=== PATIENT | female | born 1960 | race Hispanic/Latino ===

== ENCOUNTER 2020-01-07 17:03 | Inpatient (IN) | payer OTHER ==
[~2020-01-07] VITALS: Ht 160 cm; Wt 120.2 kg
[~2020-01-07 17:03] MED LIST: CLONAZEPAM1 MG PO; DOCUSATE SODIU100 MG PO; GABAPENTIN600 MG PO; GLUCOSAMINE SU500 M2 PO; IBUPROFEN400 MG PO; LEVEMIR100 UNIT/1 SQ; LEVOTHYROXINE25 MCG PO; LORATADINE10 MG PO; METFORMIN HCL1000 M1 PO; METOCLOPRAMIDE H5 MG PO; NEXIUM40 MG PO; RANITIDINE HCL150 MG PO; TYLENOL # 31 EA PO
[2020-01-07] MEDS ORDERED: SODIUM CHLORIDE 0.9% 1000ML 1,000 ML IV STA (17:25)
[2020-01-07] MEDS ORDERED: DEXAMETHASONE SOD PHOS INJ 4 MG/ML VIAL IV ONE (17:30)
[2020-01-07 17:35] LABS: BASOPHILS % 0.2 % (0.0-1.0); HEMATOCRIT 32.9 % (34.2-44.1); HEMOGLOBIN 10.1 g/dL (12.0-16.0); LYMPHOCYTES % 13.2 % (18.0-39.1); MEAN CORPUSCULAR HEMOGLOBIN 25.5 pg (28-32); MEAN CORPUSCULAR HGB CONC 30.7 g/dL (31-35); MEAN CORPUSCULAR VOLUME 83.1 fL (81-99); MONOCYTES # (AUTO) 0.8 (0.2-0.8); MONOCYTES % 4.9 % (4.4-11.3); NEUTROPHILS # (AUTO) 12.3 (2.1-6.9); NEUTROPHILS % 79.7 % (38.7-80.0); PLATELET COUNT 521 x10e3/uL (140-360); RED BLOOD COUNT 3.96 x10e6/uL (3.6-5.1); RED CELL DISTRIBUTION WIDTH 16.6 % (11.7-14.4)
--- NOTE | 2020-01-07 17:35 | NUR ---
INITIAL 02 SAT WAS 88%--ON ROOM AIR
[2020-01-07] MEDS ORDERED: CEFTRIAXONE SOD 1 GM/NS 50 ML 50 ML IV ONE (17:45)
[2020-01-07 17:46] LABS: PROTHROMBIN TIME 13.8 seconds (11.9-14.5)
[2020-01-07 17:47] LABS: PARTIAL THROMBOPLASTIN TIME 27.5 seconds (23.8-35.5)
[2020-01-07 17:54] LABS: ALANINE AMINOTRANSFERASE 12 IU/L (0-55); ALBUMIN 2.8 g/dL (3.5-5.0); ALBUMIN/GLOBULIN RATIO 0.5 (0.8-2.0); ALKALINE PHOSPHATASE 122 IU/L (40-150); ANION GAP 13.6 mmol/L (8-16); BLOOD UREA NITROGEN 29 mg/dL (7-26); BUN/CREATININE RATIO 27 (6-25); CARBON DIOXIDE 20 mmol/L (22-29); CHLORIDE 107 mmol/L (98-107); CREATINE KINASE 74 IU/L (29-168); CREATININE, SERUM 1.06 mg/dL (0.57-1.11); EST GLOMERULAR FILTRATION RATE 53 ML/MIN (60-); GLUCOSE 105 mg/dL (74-118); POTASSIUM 4.6 mmol/L (3.5-5.1); SODIUM 136 mmol/L (136-145)
[2020-01-07] MEDS ORDERED: AZITHROMYCIN 500MG/NS 250 ML 250 ML IV ONE (18:00)
[2020-01-07 18:02] LABS: B-TYPE NATRIURETIC PEPTIDE2 81.1 pg/mL (0-100)
--- NOTE | 2020-01-07 18:11 | Diagnostic Imaging Report ---
Examination: Single AP view of the chest. COMPARISON: None. INDICATION: Shortness breath DISCUSSION: Lines/tubes: None. Lungs: Multifocal ground glass and airspace consolidations bilaterally. Pleura: No pleural effusion or pneumothorax. Heart and mediastinum: The heart and the mediastinum are unremarkable. Bones and soft tissues: No acute bony abnormalities. IMPRESSION: 1. Bilateral multifocal pneumonia Signed by: Dr. Oscar Lester M.D. on 01/07/2020 6:08 PM
--- NOTE | 2020-01-07 18:59 | Emergency Department Note ---
History of Present Illnes History of Present Illness Chief Complaint: COVID PUI History of Present Illness This is a 59 year old female COUGH, F/C, SHORTNESS OF BREATH THAT STARTED 3 DAYS AGO. TESTED + FOR THE JONES VIRUS. Historian: Patient Arrival Mode: Car Additional Treatment LITHOGRAPHIC PROOFER: N/A Paper Stripper Required: No Onset (how long ago): day(s) (3) Radiation: Reports non-radiation Severity: severe Onset quality: gradual Timing of current episode: constant Progression: worsening Chronicity: new Context: Denies recent illness Relieving factors: none Exacerbating factors: none Associated symptoms: Reports cough, Reports fever/chills, Reports shortness of breath, Reports other (ACHY) Past Medical/Family History Physician Review I have reviewed the patient's past medical and family history. Any updates have been documented here. Past Medical History Recent Fever: No Clinical Suspicion of Infectio: No New/Unexplained Change in Ment: No Past Medical History: Hypertension, Diabetes, Hyperlipedemia Other Medical History: OA High cholesterol DM Neuropathy Past Surgical History: Knee Replacement Other Surgery: LEFT ANKLE Social History Smoking Cessation: Never Smoker Counseling Performed: No Alcohol Use: None Any Illegal Drug Use: No Physically hurt or threatened: No Other Last Tetanus: UNK Any Pre-Existing Lines (PICC,: No Review of Systems Review of Systems Constitutional: Reports as per HPI EENTM: Reports no symptoms Cardiovascular: Reports no symptoms Respiratory: Reports as per HPI Gastrointestinal: Reports no symptoms Genitourinary: Reports no symptoms Musculoskeletal: Reports as per HPI Integumentary: Reports no symptoms Neurological: Reports no symptoms Psychological: Reports no symptoms Endocrine: Reports no symptoms Hematological/Lymphatic: Reports no symptoms Physical Exam Related Data Allergies: Coded Allergies: No Known Allergies (Unverified , 10/19/15) Triage Vital Signs Vital Signs Date Time Temp Pulse Resp B/P (MAP) Pulse Ox O2 Delivery O2 Flow Rate FiO2 01/07/20 17:35 61 18 144/66 97 Nasal Cannula 2.0 01/07/20 18:03 98.9 Vital signs reviewed: Yes (INITIAL O2 SAT INTRIAGE WAS 88% ON RA) Physical Exam CONSTITUTIONAL Constitutional: Present ill appearing HENT HENT: Present normocephalic, Present atraumatic, Present oropharynx clear/moist, Present nose normal HENT L/R: Present left ext ear normal, Present right ext ear normal EYES Eyes: Reports PERRL, Reports conjunctivae normal NECK Neck: Present ROM normal PULMONARY Pulmonary: Present respiratory distress (TACHYPNEIC), Present other (DECR BS'S BIBASILAR) CARDIOVASCULAR Cardiovascular: Present regular rhythm, Present tachycardia GASTROINTESTINAL Abdominal: Present soft, Present nontender, Present bowel sounds normal GENITOURINARY Genitourinary: Present exam deferred SKIN Skin: Present warm, Present dry MUSCULOSKELETAL Musculoskeletal: Present ROM normal NEUROLOGICAL Neurological: Present alert, Present oriented x 3, Present no gross motor or sensory deficits PSYCHOLOGICAL Psychological: Present mood/affect normal, Present judgement normal Results Laboratory Result Diagram: 01/07/20 1716 01/07/20 1716 Laboratory Laboratory Tests Test 01/07/20 18:00 01/07/20 17:16 White Blood Count 15.41 x10e3/uL (4.8-10.8) Red Blood Count 3.96 x10e6/uL (3.6-5.1) Hemoglobin 10.1 g/dL (12.0-16.0) Hematocrit 32.9 % (34.2-44.1) Mean Corpuscular Volume 83.1 fL (81-99) Mean Corpuscular Hemoglobin 25.5 pg (28-32) Mean Corpuscular Hemoglobin Concent 30.7 g/dL (31-35) Red Cell Distribution Width 16.6 % (11.7-14.4) Platelet Count 521 x10e3/uL (140-360) Neutrophils (%) (Auto) 79.7 % (38.7-80.0) Lymphocytes (%) (Auto) 13.2 % (18.0-39.1) Monocytes (%) (Auto) 4.9 % (4.4-11.3) Eosinophils (%) (Auto) 0.0 % (0.0-6.0) Basophils (%) (Auto) 0.2 % (0.0-1.0) Neutrophils # (Auto) 12.3 (2.1-6.9) Lymphocytes # (Auto) 2.0 (1.0-3.2) Monocytes # (Auto) 0.8 (0.2-0.8) Eosinophils # (Auto) 0.0 (0.0-0.4) Basophils # (Auto) 0.0 (0.0-0.1) Absolute Immature Granulocyte (auto 0.31 x10e3/uL (0-0.1) Prothrombin Time 13.8 seconds (11.9-14.5) Prothromb Time International Ratio 1.00 Activated Partial Thromboplast Time 27.5 seconds (23.8-35.5) Sodium Level 136 mmol/L (136-145) Potassium Level 4.6 mmol/L (3.5-5.1) Chloride Level 107 mmol/L (98-107) Carbon Dioxide Level 20 mmol/L (22-29) Anion Gap 13.6 mmol/L (8-16) Blood Urea Nitrogen 29 mg/dL (7-26) Creatinine 1.06 mg/dL (0.57-1.11) Estimat Glomerular Filtration Rate 53 ML/MIN (60-) BUN/Creatinine Ratio 27 (6-25) Glucose Level 105 mg/dL (74-118) Lactic Acid Level 2.1 mmol/L (0.5-2.0) Calcium Level 9.0 mg/dL (8.4-10.2) Total Bilirubin 0.3 mg/dL (0.2-1.2) Aspartate Amino Transf (AST/SGOT) 23 IU/L (5-34) Alanine Aminotransferase (ALT/SGPT) 12 IU/L (0-55) Alkaline Phosphatase 122 IU/L (40-150) Creatine Kinase 74 IU/L (29-168) Creatine Kinase MB 0.70 ng/mL (0-5.0) Troponin I < 0.001 ng/mL (0-0.300) B-Type Natriuretic Peptide 81.1 pg/mL (0-100) Total Protein 8.9 g/dL (6.5-8.1) Albumin 2.8 g/dL (3.5-5.0) Globulin 6.1 g/dL (2.3-3.5) Albumin/Globulin Ratio 0.5 (0.8-2.0) Lab results reviewed: Yes Imaging Imaging results reviewed: Yes Assessment & Plan Medical Decision Making MDM CBC, CHEM, ECG, CARDIACS, BLOOD CX'S, LACTIC, CXR, COVID SWAB- R/O COVID19, PNEUMONIA, STEMI/NSTEMI, SEPSIS Reassessment Reassessment ADMIT DR YEN, SPOKE WITH DR Deric BRENNAN ALSO Assessment & Plan Final Impression: (1) Pneumonia due to COVID-19 virus (2) Hypoxia Depart Disposition: ADMITTED Last Vital Signs Date Time Temp Pulse Resp B/P (MAP) Pulse Ox O2 Delivery O2 Flow Rate FiO2 01/07/20 18:03 98.9 55 24 129/60 98 01/07/20 17:35 Nasal Cannula 2.0 Home Meds Reported Medications Clonazepam (CLONAZEPAM) 1 Mg Tablet, 1 MG PO BID, TAB 12/15/16 Insulin Detemir (LEVEMIR) 100 Unit/1 Ml Vial, 14 UNITS SQ BID 10/19/15 Glucosamine Sulfate 2KCL (GLUCOSAMINE SULFATE) 500 Mg Capsule, 500 MG PO TID 10/19/15 Gabapentin (GABAPENTIN) 600 Mg Tablet, 600 MG PO BID 10/19/15 Loratadine (LORATADINE) 10 Mg Tablet, 10 MG PO DAILY, #30 TAB 10/19/15 Ibuprofen (IBUPROFEN) 400 Mg Tablet, 800 MG PO TID, TAB 10/19/15 Docusate Sodium (DOCUSATE SODIUM) 100 Mg Capsule, 100 MG PO DAILY, CAP 10/19/15 Ranitidine Hcl (RANITIDINE HCL) 150 Mg Tablet, 150 MG PO BID 10/19/15 Acetaminophen/Codeine* (TYLENOL # 3*) 1 Ea Tab, 1 TAB PO BID PRN for PAIN 10/19/15 Levothyroxine Sodium (LEVOTHYROXINE SODIUM) 25 Mcg Tablet, 25 MCG PO DAILY 10/19/15 Metoclopramide Hcl (METOCLOPRAMIDE HCL) 5 Mg Tablet, 5 MG PO BID 10/19/15 Metformin Hcl (METFORMIN HCL ER) 1,000 Mg Tab.er.24, 1000 MG PO BID 10/19/15 Esomeprazole Magnesium (NEXIUM) 40 Mg Capsule.dr, 40 MG PO DAILY PROTONIX THERAPEUTIC SUBSTITUTE FOR NEXIUM PER [facility] 10/19/15 Medications in the ED Sodium Chloride 1,000 ml @ 0 mls/hr Q0M STAT IV ; Start 01/07/20 at 17:25; Stop 01/07/20 at 17:29; Status DC Ceftriaxone Sodium 50 ml @ 100 mls/hr ONCE ONCE IV ; Start 01/07/20 at 17:45; Stop 01/07/20 at 18:14; Status DC Azithromycin 250 ml @ 200 mls/hr NOW ONCE IV ; Start 01/07/20 at 18:00; Stop 01/07/20 at 19:14 Dexamethasone Sodium Phosphate 6 mg NOW ONCE IV ; Start 01/07/20 at 17:30; Stop 01/07/20 at 17:50; Status DC ELEANOR MAC MD Jan 07, 2020 18:59
[2020-01-07] MEDS ORDERED: SODIUM CHLORIDE 0.9% 1000ML 1,000 ML IV SCH (19:00)
[2020-01-07] MEDS ORDERED: ACETAMINOPHEN 325 MG TAB PO PRN (19:45)
[2020-01-07] MEDS ORDERED: DEXTROSE 50% SYRINGE 50 ML IV PRN (20:00)
[2020-01-07] MEDS: INSULIN REGULAR, HUMAN 100 UNIT/1 ML 3ML VIAL SQ SCH (20:26)
[2020-01-07] MEDS: INSULIN GLARGINE 100 UNITS/ML VIAL SQ SCH (20:26)
--- NOTE | 2020-01-07 20:56 | Consultation ---
DATE OF CONSULTATION: Pulmonary Critical Care Consultation CHIEF COMPLAINT: Cough, chest discomfort, and dyspnea. HISTORY OF PRESENT ILLNESS: The patient is a 59-year-old woman. She has a history of asthma, but rarely uses inhaler. She complains of worsening dyspnea and cough for 2-3 days. She also notes some chest discomfort and fevers. She is not complaining of nausea or vomiting. PAST SURGICAL HISTORY: Ankle surgery. PAST MEDICAL HISTORY: 1. Diabetes. 2. Asthma. 3. Anxiety. 4. Gastroesophageal reflux. FAMILY HISTORY: Noncontributory. ALLERGIES: NO KNOWN DRUG ALLERGIES. SOCIAL HISTORY: The patient is an occasional smoker. She is not a drinker. REVIEW OF SYSTEMS: She reports some fevers. There is no headache. She has no neck pain. She does have some chest discomfort. She has some cough. She has no abdominal pain. She has no nausea or vomiting. She has occasional wheezing. She does not complain of any leg swelling. PHYSICAL EXAMINATION: VITAL SIGNS: The patient is afebrile. The blood pressure is 129/60, saturation is 98% on 2 L. The pulse is 55. HEENT: No facial swelling or erythema. CARDIAC: Regular rate and rhythm with normal S1, S2. LUNGS: Auscultation of lungs reveals crackles at the bases. There is no wheezing. ABDOMEN: Soft, nontender. There is no rebound or guarding. EXTREMITIES: No leg edema or calf tenderness. There is no cyanosis or clubbing. SKIN: No rashes. NEUROLOGICAL: No focal abnormalities. LABORATORY DATA: White blood cell count is 15.4 and hemoglobin is 10.1. The platelet count is 521. The BUN to creatinine ratio is 29 to 1.06. Electrolytes are within normal limits. Lactic acid is 2.1. RADIOGRAPHIC DATA: Chest x-ray shows bilateral infiltrates. IMPRESSION: 1. Viral pneumonia and coronavirus disease-19 infection. 2. Diabetes. 3. Hypertension. PLAN: 1. Zithromax and Rocephin. 2. Dexamethasone. 3. Lovenox. 4. Oxygen as needed. 5. Continue to monitor and control blood sugars. MD JHONY Jaffe/ROSS /[id number]
[2020-01-07] MEDS ORDERED: HYDRALAZINE HCL 20 MG/ML VIAL IV PRN (21:15)
[2020-01-07] MEDS ORDERED: POLYETHYLENE GLYCOL 3350 17 GM PACK PO PRN (21:15)
[2020-01-07] MEDS ORDERED: ONDANSETRON HCL INJ 2MG/ML 2ML 2 MG/ML VIAL IV PRN (21:15)
[2020-01-07] MEDS: CLONAZEPAM 1 MG TAB PO SCH (21:28)
[2020-01-07] MEDS: ENOXAPARIN SOD INJ 40 MG/0.4 ML SYR SC SCH (21:28)
[2020-01-07 23:18] LABS: CLARITY,URINE CLEAR (CLEAR); COLOR,URINE YELLOW (YELLOW); KETONES,URINE NEGATIVE (NEGATIVE); LEUKOCYTE ESTERASE ,URINE NEGATIVE (NEGATIVE); NITRITE,URINE NEGATIVE (NEGATIVE); PROTEIN,URINE DIPSTICK 1+ (NEGATIVE); URINE UROBILINOGEN 0.2 mg/dL (0.2 - 1)
[2020-01-07 23:19] LABS: BILIRUBIN,URINE NEGATIVE (NEGATIVE)
[2020-01-07 23:38] LABS: BACTERIA,URINE FEW /HPF; EPITHELIAL CELLS,URINE FEW /LPF; RBC,URINE 0-5 /HPF (0-5)
[2020-01-08 02:03] LABS: BASOPHILS % 0.2 % (0.0-1.0); HEMATOCRIT 30.7 % (34.2-44.1); HEMOGLOBIN 9.5 g/dL (12.0-16.0); LYMPHOCYTES # (AUTO) 1.3 (1.0-3.2); LYMPHOCYTES % 8.4 % (18.0-39.1); MEAN CORPUSCULAR HEMOGLOBIN 25.9 pg (28-32); MEAN CORPUSCULAR HGB CONC 30.9 g/dL (31-35); MEAN CORPUSCULAR VOLUME 83.7 fL (81-99); MONOCYTES # (AUTO) 0.4 (0.2-0.8); MONOCYTES % 2.7 % (4.4-11.3); NEUTROPHILS # (AUTO) 13.1 (2.1-6.9); NEUTROPHILS % 87.4 % (38.7-80.0); PLATELET COUNT 425 x10e3/uL (140-360); RED BLOOD COUNT 3.67 x10e6/uL (3.6-5.1); RED CELL DISTRIBUTION WIDTH 16.5 % (11.7-14.4)
[2020-01-08 02:21] LABS: CHOL/HDL RATIO 6.6 (3.0-3.6); PHOSPHORUS 4.1 MG/DL (2.3-4.7)
[2020-01-08 02:49] LABS: THYROID STIMULATING HORMONE 0.721 uIU/mL (0.350-4.940)
[2020-01-08 03:09] LABS: ALANINE AMINOTRANSFERASE 11 IU/L (0-55); ALBUMIN 2.6 g/dL (3.5-5.0); ALBUMIN/GLOBULIN RATIO 0.5 (0.8-2.0); ALKALINE PHOSPHATASE 114 IU/L (40-150); ANION GAP 12.4 mmol/L (8-16); BLOOD UREA NITROGEN 26 mg/dL (7-26); BUN/CREATININE RATIO 27 (6-25); CALCIUM 8.7 mg/dL (8.4-10.2); CARBON DIOXIDE 22 mmol/L (22-29); CHLORIDE 108 mmol/L (98-107); CREATININE, SERUM 0.95 mg/dL (0.57-1.11); EST GLOMERULAR FILTRATION RATE > 60 ML/MIN (60-); GLUCOSE 201 mg/dL (74-118); POTASSIUM 5.4 mmol/L (3.5-5.1); SODIUM 137 mmol/L (136-145)
[2020-01-08 05:16] LABS: BASOPHILS % 0.1 % (0.0-1.0); HEMOGLOBIN 9.9 g/dL (12.0-16.0); LYMPHOCYTES # (AUTO) 1.4 (1.0-3.2); LYMPHOCYTES % 9.8 % (18.0-39.1); MEAN CORPUSCULAR HEMOGLOBIN 25.8 pg (28-32); MEAN CORPUSCULAR HGB CONC 30.9 g/dL (31-35); MEAN CORPUSCULAR VOLUME 83.3 fL (81-99); MONOCYTES # (AUTO) 0.5 (0.2-0.8); MONOCYTES % 3.4 % (4.4-11.3); NEUTROPHILS # (AUTO) 11.8 (2.1-6.9); NEUTROPHILS % 85.4 % (38.7-80.0); PLATELET COUNT 475 x10e3/uL (140-360); RED BLOOD COUNT 3.84 x10e6/uL (3.6-5.1); RED CELL DISTRIBUTION WIDTH 16.6 % (11.7-14.4)
[2020-01-08 05:33] LABS: ALANINE AMINOTRANSFERASE 12 IU/L (0-55); ALBUMIN 2.7 g/dL (3.5-5.0); ALBUMIN/GLOBULIN RATIO 0.5 (0.8-2.0); ALKALINE PHOSPHATASE 118 IU/L (40-150); BLOOD UREA NITROGEN 25 mg/dL (7-26); BUN/CREATININE RATIO 26 (6-25); CALCIUM 8.7 mg/dL (8.4-10.2); CARBON DIOXIDE 18 mmol/L (22-29); CHLORIDE 109 mmol/L (98-107); CREATININE, SERUM 0.95 mg/dL (0.57-1.11); EST GLOMERULAR FILTRATION RATE > 60 ML/MIN (60-); GLUCOSE 234 mg/dL (74-118); SODIUM 136 mmol/L (136-145)
[2020-01-08] MEDS: DEXAMETHASONE SOD PHOS INJ 4 MG/ML VIAL IV SCH (06:28)
[2020-01-08] MEDS: LEVOTHYROXINE SODIUM 25 MCG TABLET PO SCH (06:28)
--- NOTE | 2020-01-08 07:08 | NUR ---
he patient is a 59-year-old woman. She has a history of asthma, but rarely uses inhaler. She complains of worsening dyspnea and cough for 2-3 days. She also notes some chest discomfort and fevers. She is not complaining of nausea or vomiting. PAST SURGICAL HISTORY: Ankle surgery. PAST MEDICAL HISTORY: 1. Diabetes. 2. Asthma. 3. Anxiety. 4. Gastroesophageal reflux. FAMILY HISTORY: Noncontributory. ALLERGIES: NO KNOWN DRUG ALLERGIES. SOCIAL HISTORY: The patient is an occasional smoker. She is not a drinker. REVIEW OF SYSTEMS: She reports some fevers. There is no headache. She has no neck pain. She does have some chest discomfort. She has some cough. She has no abdominal pain. She has no nausea or vomiting. She has occasional wheezing. She does not complain of any leg swelling. PHYSICAL EXAMINATION: VITAL SIGNS: The patient is afebrile. The blood pressure is 129/60, saturation is 98% on 2 L. The pulse is 55. HEENT: No facial swelling or erythema. CARDIAC: Regular rate and rhythm with normal S1, S2. LUNGS: Auscultation of lungs reveals crackles at the bases. There is no wheezing. ABDOMEN: Soft, nontender. There is no rebound or guarding. EXTREMITIES: No leg edema or calf tenderness. There is no cyanosis or clubbing. SKIN: No rashes. NEUROLOGICAL: No focal abnormalities. LABORATORY DATA: White blood cell count is 15.4 and hemoglobin is 10.1. The platelet count is 521. The BUN to creatinine ratio is 29 to 1.06. Electrolytes are within normal limits. Lactic acid is 2.1. [id number]
[2020-01-08] MEDS: INSULIN REGULAR, HUMAN 100 UNIT/1 ML 3ML VIAL SQ SCH ×4 (08:34→20:26)
[2020-01-08] MEDS: PANTOPRAZOLE SOD 40 MG TABEC PO SCH (08:34)
[2020-01-08] MEDS: CHOLECALCIFEROL 400 UNIT TAB PO SCH (08:35)
[2020-01-08] MEDS: CLONAZEPAM 1 MG TAB PO SCH ×2 (08:35→20:59)
[2020-01-08] MEDS: INSULIN GLARGINE 100 UNITS/ML VIAL SQ SCH ×2 (08:35→20:25)
[2020-01-08] MEDS: ENOXAPARIN SOD INJ 40 MG/0.4 ML SYR SC SCH ×2 (08:35→20:25)
[2020-01-08] MEDS: ASCORBIC ACID 500 MG TAB PO SCH ×2 (08:35→17:35)
[2020-01-08] MEDS: ZINC SULFATE 220 MG CAP PO SCH ×2 (08:35→17:35)
--- NOTE | 2020-01-08 10:26 | Diagnostic Imaging Report ---
EXAMINATION: CHEST SINGLE (PORTABLE) INDICATION: Viral pneumonia COMPARISON: Chest radiograph 01/07/2020 FINDINGS: LINES/TUBES:EKG leads overlie the chest. LUNGS:The lungs are moderately inflated. Increasing bilateral multifocal patchy opacities. PLEURA:No pleural effusion or pneumothorax. MEDIASTINUM:The cardiomediastinal silhouette appears unchanged in size and shape. BONES/SOFT TISSUES:No acute osseous injury. ABDOMEN:No free air under the diaphragm. IMPRESSION: Increasing bilateral multifocal patchy airspace opacities consistent with known viral pneumonia. Signed by: Chalino Lares MD on 01/08/2020 10:23 AM
--- NOTE | 2020-01-08 11:10 | NUR ---
PT TO THE FLOOR AT THIS TIME. PT'S VITALS WNL. PT DENIES NEEDS AT THIS TIME.
[2020-01-08 12:00] VITALS: BP 143/68
[2020-01-08 13:24] VITALS: BP 163/70
[2020-01-08 15:38] VITALS: BP 163/70
--- NOTE | 2020-01-08 16:29 | Progress Note ---
DATE: SUBJECTIVE: The patient still has some dyspnea, although she feels better. She is not having any fevers. She is scheduled to receive convalescent plasma as well as possible remdesivir. PHYSICAL EXAMINATION: VITAL SIGNS: Blood pressure is 163/70, saturation is 92% on 4 L. HEENT: Shows no facial swelling or erythema. CARDIAC: Reveals regular rate and rhythm with normal S1 and S2. LUNGS: Auscultation of lungs reveals crackles at the bases. There is no wheezing. ABDOMEN: Soft and nontender. There is no rebound or guarding. EXTREMITIES: Shows no leg edema or calf tenderness. There is no cyanosis or clubbing. SKIN: Shows no rashes. NEUROLOGICAL: Shows no focal abnormalities. LABORATORY DATA: CBC is significant for a white blood cell count of 13.8, hemoglobin 9.9. The platelet count is 475. BUN to creatinine ratio is normal. The carbon dioxide is 18. Blood sugar is 238. Albumin is 2.7. IMPRESSION: 1. Viral pneumonia and COVID-19 infection. 2. Diabetes. 3. Anemia, unspecified. 4. Hypertension. PLAN: 1. Continue dexamethasone. 2. Continue oxygen. 3. Lovenox. 4. Zithromax and Rocephin. 5. The patient is scheduled to receive convalescent plasma therapy. 6. Possible remdesivir. 7. Monitor and control blood sugars. Tanner Vazquez MD [facility]/JAYDENL /[id number]
[2020-01-08] MEDS: AZITHROMYCIN 500MG/NS 250 ML 250 ML IV SCH (17:34)
[2020-01-08] MEDS: CEFTRIAXONE SOD 1 GM/NS 50 ML 50 ML IV SCH (17:35)
[2020-01-08] MEDS ORDERED: SODIUM CHLORIDE 0.9% 250ML 250 ML ONE (17:36)
--- NOTE | 2020-01-08 17:55 | Consultation ---
DATE OF CONSULTATION: HISTORY OF PRESENT ILLNESS: Ms. Noguera is a 59-year-old female who has been sick for 5 days with shortness of breath. The patient comes in to the emergency room where she is being admitted. PAST MEDICAL HISTORY: Asthma, diabetes mellitus, anxiety, gastroesophageal reflux disease. PAST SURGICAL HISTORY: Ankle surgery. ALLERGIES: NKA. SOCIAL HISTORY: There is no smoking, drug abuse, or alcohol abuse. The patient was admitted. Her COVID-19 came back positive. Her sodium 136, potassium 5.0, creatinine 0.95. The patient is currently on 4 L, when she first came was on 2 L. Chest x-ray was reviewed. PHYSICAL EXAMINATION: GENERAL: Currently alert and oriented. VITAL SIGNS: Stable, afebrile. HEENT: She is not icteric. NECK: Supple. CHEST: Clear. HEART: S1 and S2. ABDOMEN: Soft. IMPRESSION: 1. COVID-19. Concerned about superimposed bacterial pneumonia. 2. Diabetes mellitus. Rocephin 1 g daily for 5 days, azithromycin 500 mg daily for 3 days, Lovenox 0.5 mg/kg q.12 hours, dexamethasone 6 mg daily for 10 days. Discussed with the patient about remdesivir. She was informed that it is still investigational drug, but she did not agree to take it and the patient was given the fact sheet. She can stop any time she want. Discussed with the patient also about convalescent plasma, she agreed to take it. We will start the process and give when available. MD SHANNAN Edwards/ROSS /[id number]
[2020-01-08] MEDS ORDERED: REMDESIVIR 200MG/NS 100ML 200 MG in SODIUM CHLORIDE 0.9% 100 ML 100 ML IV ONE ×2 (18:00→19:30)
[2020-01-08 18:21] VITALS: BP 143/68
--- NOTE | 2020-01-08 19:05 | NUR ---
Received nursing shift report from morning nurse. Pt alert and oriented to name. c/o mild LUA at this time. Call momin within reach.
[2020-01-08 20:00] VITALS: BP 147/68
[2020-01-08] MEDS ORDERED: ACETAMINOPHEN/CODEINE 300MG - 30MG TAB PO PRN (20:30)
[2020-01-08] MEDS: GLUCOSAMINE SULFATE 500 MG PO SCH (21:00)
[2020-01-08] MEDS: IBUPROFEN 400 MG TAB PO SCH (21:10)
--- NOTE | 2020-01-08 21:46 | NUR ---
Mateus Foss spoke with Shawn Le, Blood product will not be available tonight for transfusion.
[2020-01-08 22:51] VITALS: BP 147/68
[2020-01-09] VITALS (7 sets, daily range): BP systolic 112–155; BP diastolic 45–83
--- NOTE | 2020-01-09 03:45 | NUR ---
PT C/O SEVERE 10/10 HEADACHE, CHASITY WEBSTER ORDERED FIORICET PRN.
[2020-01-09] MEDS: ACETAMIN/BUTALBITAL/CAFFEINE TAB PO PRN (03:55)
[2020-01-09] MEDS: LEVOTHYROXINE SODIUM 25 MCG TABLET PO SCH (06:00)
[2020-01-09] MEDS: DEXAMETHASONE SOD PHOS INJ 4 MG/ML VIAL IV SCH (06:00)
--- NOTE | 2020-01-09 07:10 | NUR ---
PATIENT IS IN STABLE CONDITION WITH NO S/S OF RESPIRATORY DISTRESS. NO PAIN VOICED. 02 AT 4LNC AND TELEMETRY APPLIED. CALL LIGHT IS WITHIN REACH, PATIENT INSTRUCTED TO CALL FOR ASSISTANCE NEEDED.
[2020-01-09 07:27] LABS: BASOPHILS % 0.1 % (0.0-1.0); HEMATOCRIT 31.1 % (34.2-44.1); HEMOGLOBIN 9.7 g/dL (12.0-16.0); LYMPHOCYTES # (AUTO) 1.9 (1.0-3.2); LYMPHOCYTES % 14.2 % (18.0-39.1); MEAN CORPUSCULAR HEMOGLOBIN 25.8 pg (28-32); MEAN CORPUSCULAR HGB CONC 31.2 g/dL (31-35); MEAN CORPUSCULAR VOLUME 82.7 fL (81-99); MONOCYTES # (AUTO) 0.9 (0.2-0.8); MONOCYTES % 6.8 % (4.4-11.3); NEUTROPHILS # (AUTO) 10.7 (2.1-6.9); NEUTROPHILS % 78.1 % (38.7-80.0); PLATELET COUNT 479 x10e3/uL (140-360); RED BLOOD COUNT 3.76 x10e6/uL (3.6-5.1); RED CELL DISTRIBUTION WIDTH 16.5 % (11.7-14.4)
[2020-01-09] MEDS: INSULIN REGULAR, HUMAN 100 UNIT/1 ML 3ML VIAL SQ SCH ×4 (07:30→21:00)
[2020-01-09 07:56] LABS: ANION GAP 12.4 mmol/L (8-16); CALCIUM 8.7 mg/dL (8.4-10.2); CREATININE, SERUM 1.02 mg/dL (0.57-1.11); POTASSIUM 4.4 mmol/L (3.5-5.1)
[2020-01-09] MEDS: GABAPENTIN 300 MG CAP PO SCH ×2 (08:51→16:05)
[2020-01-09] MEDS: LORATADINE 10 MG TAB PO SCH (08:51)
[2020-01-09] MEDS: ASCORBIC ACID 500 MG TAB PO SCH ×2 (08:51→16:05)
[2020-01-09] MEDS: CLONAZEPAM 1 MG TAB PO SCH ×2 (08:51→21:00)
[2020-01-09] MEDS: IBUPROFEN 400 MG TAB PO SCH (08:51)
[2020-01-09] MEDS: PANTOPRAZOLE SOD 40 MG TABEC PO SCH (08:51)
[2020-01-09] MEDS: ENOXAPARIN SOD INJ 40 MG/0.4 ML SYR SC SCH ×2 (08:51→21:00)
[2020-01-09] MEDS: ZINC SULFATE 220 MG CAP PO SCH ×2 (08:51→16:05)
[2020-01-09] MEDS: DOCUSATE SODIUM 100 MG CAP PO SCH (08:51)
[2020-01-09] MEDS: CHOLECALCIFEROL 400 UNIT TAB PO SCH (08:51)
[2020-01-09] MEDS: INSULIN GLARGINE 100 UNITS/ML VIAL SQ SCH ×2 (08:52→21:00)
[2020-01-09] MEDS: GLUCOSAMINE SULFATE 500 MG PO SCH ×3 (09:00→21:00)
[2020-01-09] MEDS ORDERED: NON-FORMULARY MEDICATION (Gabapentin 600 MG) PO SCH (09:00)
[2020-01-09] MEDS: AMLODIPINE BESYLATE 5 MG TAB PO SCH (12:33)
[2020-01-09] MEDS: REMDESIVIR 100MG/NS 100ML 100 MG in SODIUM CHLORIDE 0.9% 100 ML 100 ML IV SCH (13:53)
--- NOTE | 2020-01-09 15:25 | Progress Note ---
DATE: SUBJECTIVE: The patient is afebrile. She has less dyspnea. She is down to 4 L. PHYSICAL EXAMINATION: VITAL SIGNS: Blood pressure is 119/83, saturation is 99%. Pulse is 96. HEENT: Shows no facial swelling or erythema. CARDIAC: Reveals regular rate and rhythm with normal S1 and S2. LUNGS: Auscultation of lungs reveals clear breath sounds bilaterally. There is no wheezing. ABDOMEN: Soft and nontender. There is no rebound or guarding. EXTREMITIES: Shows no leg edema or calf tenderness. There is no cyanosis or clubbing. SKIN: Shows no rashes. NEUROLOGICAL: Shows no focal abnormalities. LABORATORY DATA: White blood cell count is 13.7 and hemoglobin is 9.7. The platelet count is 479. The BUN to creatinine ratio is 32 to 1.02. The other electrolytes within normal limits. IMPRESSION: 1. Viral pneumonia and COVID-19 infection. 2. Diabetes. 3. Anemia, unspecified. 4. Hypertension. PLAN: 1. Continue oxygen. 2. Complete remdesivir. 3. Continue Lovenox. 4. Complete dexamethasone. 5. Complete antibiotics. 6. Monitor and control blood sugars. Tanner Vazquez MD [facility]/MODL /[id number]
[2020-01-09] MEDS: AZITHROMYCIN 500MG/NS 250 ML 250 ML IV SCH (16:05)
[2020-01-09] MEDS: CEFTRIAXONE SOD 1 GM/NS 50 ML 50 ML IV SCH (17:45)
[2020-01-09] MEDS ORDERED: SODIUM CHLORIDE 0.9% 250ML 250 ML ONE (18:37)
--- NOTE | 2020-01-09 19:30 | NUR ---
Completed shift report from morning nurse. Pt alert and oriented to name. Pt receiving convalescent frozen plasma 20g right wrist, tolerating well. Call momin within reach. Will continue to monitor.
--- NOTE | 2020-01-09 19:33 | NUR ---
PATIENT IS IN STABLE CONDITION WITH NO S/S OF RESPIRATORY DISTRESS-NO PAIN VOICED. TELEMETRY APPLIED. 02 APPLIED AT 4L NC. CONVALESCENT FROZEN PLASMA INFUSING AT THIS TIME- PATIENT TOLERATING INFUSION WELL. CALL LIGHT IS WITHIN REACH, PATIENT INSTRUCTED TO CALL FOR ASSISTANCE NEEDED. REPORT GIVEN TO ONCOMING NURSE.
--- NOTE | 2020-01-09 19:45 | NUR ---
Convalescent frozen plasma completed, 221 ml in 1 hour. Pt tolerated well, no reactions noted.
[2020-01-09] MEDS: TEMAZEPAM 7.5 MG CAP PO PRN (20:45)
[2020-01-10] VITALS (8 sets, daily range): BP systolic 114–134; BP diastolic 52–58
--- NOTE | 2020-01-10 05:45 | NUR ---
Blood drawn x1 stick, Pt tolerated well. No acute distress noted. O2 @4L NC. Call light within reach.
[2020-01-10] MEDS: DEXAMETHASONE SOD PHOS INJ 4 MG/ML VIAL IV SCH (05:56)
[2020-01-10] MEDS: LEVOTHYROXINE SODIUM 25 MCG TABLET PO SCH (05:56)
[2020-01-10 06:02] LABS: BASOPHILS % 0.2 % (0.0-1.0); EOSINOPHILS % 0.1 % (0.0-6.0); HEMATOCRIT 31.6 % (34.2-44.1); HEMOGLOBIN 9.8 g/dL (12.0-16.0); LYMPHOCYTES # (AUTO) 2.3 (1.0-3.2); MEAN CORPUSCULAR HEMOGLOBIN 25.7 pg (28-32); MEAN CORPUSCULAR VOLUME 82.9 fL (81-99); MONOCYTES # (AUTO) 0.9 (0.2-0.8); MONOCYTES % 6.6 % (4.4-11.3); NEUTROPHILS % 75.3 % (38.7-80.0); PLATELET COUNT 489 x10e3/uL (140-360); RED BLOOD COUNT 3.81 x10e6/uL (3.6-5.1); RED CELL DISTRIBUTION WIDTH 16.7 % (11.7-14.4)
[2020-01-10 06:33] LABS: ALBUMIN 2.7 g/dL (3.5-5.0); ALBUMIN/GLOBULIN RATIO 0.6 (0.8-2.0); ANION GAP 12.1 mmol/L (8-16); CALCIUM 8.7 mg/dL (8.4-10.2); CHOL/HDL RATIO 5.8 (3.0-3.6); CREATININE, SERUM 0.97 mg/dL (0.57-1.11); POTASSIUM 4.1 mmol/L (3.5-5.1)
--- NOTE | 2020-01-10 07:20 | NUR ---
PATIENT IS AWAKE, ALERT, AND IN STABLE CONDITION WITH NO S/S OF RESPIRATORY DISTRESS. NO PAIN VOICED. TELEMETRY APPLIED. 02 APPLIED AT 4L NC. BEDSIDE COMMODE AVAILABLE BY PATIENT'S BEDSIDE. CALL LIGHT IS WITHIN REACH, PATIENT INSTRUCTED TO CALL FOR ASSISTANCE NEEDED.
[2020-01-10] MEDS: INSULIN REGULAR, HUMAN 100 UNIT/1 ML 3ML VIAL SQ SCH ×4 (07:30→20:30)
[2020-01-10] MEDS: ENOXAPARIN SOD INJ 40 MG/0.4 ML SYR SC SCH ×2 (08:16→20:30)
[2020-01-10] MEDS: ASCORBIC ACID 500 MG TAB PO SCH ×2 (08:18→16:53)
[2020-01-10] MEDS: CHOLECALCIFEROL 400 UNIT TAB PO SCH (08:18)
[2020-01-10] MEDS: AMLODIPINE BESYLATE 5 MG TAB PO SCH (08:18)
[2020-01-10] MEDS: DOCUSATE SODIUM 100 MG CAP PO SCH (08:18)
[2020-01-10] MEDS: INSULIN GLARGINE 100 UNITS/ML VIAL SQ SCH ×2 (08:18→20:30)
[2020-01-10] MEDS: GLUCOSAMINE SULFATE 500 MG PO SCH ×3 (08:18→21:00)
[2020-01-10] MEDS: ZINC SULFATE 220 MG CAP PO SCH ×2 (08:18→16:53)
[2020-01-10] MEDS: GABAPENTIN 300 MG CAP PO SCH ×2 (08:18→16:53)
[2020-01-10] MEDS: LORATADINE 10 MG TAB PO SCH (08:18)
[2020-01-10] MEDS: PANTOPRAZOLE SOD 40 MG TABEC PO SCH (08:18)
[2020-01-10] MEDS: CLONAZEPAM 1 MG TAB PO SCH ×2 (08:18→20:30)
[2020-01-10] MEDS ORDERED: NORVASC5 MG PO (10:34)
--- NOTE | 2020-01-10 13:10 | NUR ---
PT screen completed. Patient is able to perform bed mobility and transfers with out assistance, she is able to walk inside the room with walker with Mod I. Skilled physical therapy services not indicated at this time. Please notify therapy/write new PT orders if any changes in functional status noted in future. Thank you. Addendum: 01/10/20 at 1312 by Archie triana PT Amended: Links added.
[2020-01-10] MEDS: REMDESIVIR 100MG/NS 100ML 100 MG in SODIUM CHLORIDE 0.9% 100 ML 100 ML IV SCH (13:26)
[2020-01-10] MEDS: AZITHROMYCIN 500MG/NS 250 ML 250 ML IV SCH (16:02)
[2020-01-10] MEDS: CEFTRIAXONE SOD 1 GM/NS 50 ML 50 ML IV SCH (16:53)
--- NOTE | 2020-01-10 19:17 | NUR ---
PATIENT IS IN STABLE CONDITION WITH NO S/S OF RESPIRATORY DISTRESS-NO PAIN VOICED. TELEMETRY APPLIED. 02 APPLIED AT 2L NC. BEDSIDE COMMODE AVAILABLE NEAR PATIENT'S BEDSIDE. CALL LIGHT IS WITHIN REACH, PATIENT INSTRUCTED TO CALL FOR ASSISTANCE NEEDED. REPORT GIVEN TO ONCOMING NURSE.
--- NOTE | 2020-01-10 19:25 | NUR ---
Patient visited in room during nursing rounds. On droplet isolation for positive covid test. Alert and oriented x3. Ambulatory in room and uses bedside commode prn. Sinus bradycardia (56) on telemetry reading. Pt on IV antibiotic treatment (IV Azithromycin and IV Rocephin) as scheduled. Also on IV anti-viral medication (Remdesivir) as scheduled. O2 saturation 99% on 2L NC. Call momin within reach. Will monitor pt closely.
--- NOTE | 2020-01-10 19:45 | Progress Note ---
DATE: SUBJECTIVE: The patient is receiving the last dose of remdesivir tomorrow. She is down to 2 L. She is less symptomatic. PHYSICAL EXAMINATION: VITAL SIGNS: Blood pressure is 114/54, saturation is 96%. The patient is afebrile. HEENT: Shows no facial swelling or erythema. CARDIAC: Reveals regular rate and rhythm with normal S1, S2. LUNGS: Auscultation of lungs reveals rhonchorous breath sounds bilaterally. There is no wheezing. ABDOMEN: Soft and nontender. There is no rebound or guarding. EXTREMITIES: Shows no leg edema. LABORATORY DATA: White blood cell count is 13.2, hemoglobin is 9.8. BUN, creatinine, electrolytes show within normal limits. Blood sugar is 292. IMPRESSION: 1. Viral pneumonia and COVID-19 infection. 2. Diabetes. 3. Anemia, unspecified. 4. Dehydration. 5. Hypertension. PLAN: 1. Complete remdesivir. 2. Continue Lovenox. 3. Complete dexamethasone. 4. Wean oxygen. 5. Monitor and control blood sugars. 6. Possible discharge home after completion of remdesivir. Tanner Vazquez MD [facility]/MODL /[id number]
[2020-01-11] VITALS (8 sets, daily range): BP systolic 121–137; BP diastolic 56–66
[2020-01-11] MEDS: LEVOTHYROXINE SODIUM 25 MCG TABLET PO SCH (05:20)
[2020-01-11] MEDS: DEXAMETHASONE SOD PHOS INJ 4 MG/ML VIAL IV SCH (05:20)
[2020-01-11 05:48] LABS: BASOPHILS % 0.1 % (0.0-1.0); EOSINOPHILS # (AUTO) 0.1 (0.0-0.4); EOSINOPHILS % 0.6 % (0.0-6.0); HEMATOCRIT 31.4 % (34.2-44.1); HEMOGLOBIN 9.6 g/dL (12.0-16.0); LYMPHOCYTES # (AUTO) 2.7 (1.0-3.2); LYMPHOCYTES % 17.9 % (18.0-39.1); MEAN CORPUSCULAR HEMOGLOBIN 25.7 pg (28-32); MEAN CORPUSCULAR HGB CONC 30.6 g/dL (31-35); MONOCYTES # (AUTO) 0.9 (0.2-0.8); MONOCYTES % 5.8 % (4.4-11.3); NEUTROPHILS # (AUTO) 11.4 (2.1-6.9); NEUTROPHILS % 74.9 % (38.7-80.0); PLATELET COUNT 460 x10e3/uL (140-360); RED BLOOD COUNT 3.74 x10e6/uL (3.6-5.1); RED CELL DISTRIBUTION WIDTH 16.9 % (11.7-14.4)
[2020-01-11 06:34] LABS: ALANINE AMINOTRANSFERASE 13 IU/L (0-55); ALBUMIN 2.6 g/dL (3.5-5.0); ALBUMIN/GLOBULIN RATIO 0.6 (0.8-2.0); ALKALINE PHOSPHATASE 98 IU/L (40-150); ANION GAP 10.9 mmol/L (8-16); BLOOD UREA NITROGEN 38 mg/dL (7-26); BUN/CREATININE RATIO 44 (6-25); CALCIUM 8.3 mg/dL (8.4-10.2); CARBON DIOXIDE 20 mmol/L (22-29); CHLORIDE 108 mmol/L (98-107); CREATININE, SERUM 0.86 mg/dL (0.57-1.11); EST GLOMERULAR FILTRATION RATE > 60 ML/MIN (60-); GLUCOSE 184 mg/dL (74-118); POTASSIUM 3.9 mmol/L (3.5-5.1); SODIUM 135 mmol/L (136-145)
--- NOTE | 2020-01-11 08:29 | Diagnostic Imaging Report ---
Examination: Single AP view of the chest. COMPARISON: 01/08/2020 INDICATION: Bilateral pneumonia DISCUSSION: The lungs remain well-inflated. Interval improvement in multifocal patchy airspace disease relative to 01/08/2020. No pleural effusion or pneumothorax. Stable cardiomediastinal contour. No acute osseous abnormalities. IMPRESSION: Interval improvement in patchy multifocal airspace opacities in keeping with known viral pneumonia. Signed by: Dr. Hernando Rizo M.D. on 01/11/2020 8:25 AM
[2020-01-11] MEDS: GLUCOSAMINE SULFATE 500 MG PO SCH ×3 (09:00→20:21)
[2020-01-11] MEDS: PANTOPRAZOLE SOD 40 MG TABEC PO SCH (09:22)
[2020-01-11] MEDS: ASCORBIC ACID 500 MG TAB PO SCH ×2 (09:23→16:41)
[2020-01-11] MEDS: ENOXAPARIN SOD INJ 40 MG/0.4 ML SYR SC SCH ×2 (09:23→20:45)
[2020-01-11] MEDS: LORATADINE 10 MG TAB PO SCH (09:23)
[2020-01-11] MEDS: CLONAZEPAM 1 MG TAB PO SCH ×2 (09:23→20:45)
[2020-01-11] MEDS: GABAPENTIN 300 MG CAP PO SCH ×2 (09:23→16:41)
[2020-01-11] MEDS: AMLODIPINE BESYLATE 5 MG TAB PO SCH (09:23)
[2020-01-11] MEDS: ZINC SULFATE 220 MG CAP PO SCH ×2 (09:23→16:41)
[2020-01-11] MEDS: DOCUSATE SODIUM 100 MG CAP PO SCH (09:23)
[2020-01-11] MEDS: INSULIN REGULAR, HUMAN 100 UNIT/1 ML 3ML VIAL SQ SCH ×4 (09:23→20:45)
[2020-01-11] MEDS: CHOLECALCIFEROL 400 UNIT TAB PO SCH (09:23)
[2020-01-11] MEDS: INSULIN GLARGINE 100 UNITS/ML VIAL SQ SCH ×2 (09:23→20:45)
[2020-01-11] MEDS: ACETAMIN/BUTALBITAL/CAFFEINE TAB PO PRN (09:24)
--- NOTE | 2020-01-11 09:47 | Progress Note ---
DATE: SUBJECTIVE: The patient seen and evaluated. Available labs and notes reviewed. Discussed with Dr. Silva. REVIEW OF SYSTEMS: The patient is doing fine on 2 L of nasal cannula per minute on a high-flow; however, she gets short of breath when she goes to the bedside commode. She had a saturation test for oxygen done on 01/11/2020 showed 88% oxygen saturation on room air at rest. PHYSICAL EXAMINATION: VITAL SIGNS: Temperature is 97.9, pulse 60, respirations 22, blood pressure is 124/58. GENERAL: Alert and oriented, no acute distress. Seems comfortable on 2 L of nasal cannula via high-flow when she is resting in bed. CV: S1-S2. CHEST: Equal expansion, decreased breath sounds, no acute distress. ABDOMEN: Soft, obese, nontender. The patient has a BMI of 46.2. EXTREMITIES: Weak. LABORATORY STUDIES: White count of 15.26, which is slightly higher than yesterday, which was 13.26, hemoglobin is 9.6, platelets 460. Sodium 135, potassium 3.9, creatinine 0.8. SEROLOGY: Coronavirus was detected on 01/06. MICROBIOLOGY: Blood culture negative, 72 hours. RADIOLOGY STUDIES: Chest x-ray from today showed interval improvement in patchy multifocal airspace opacities in keeping with known viral pneumonia. ASSESSMENT AND PLAN: 1. COVID-19 pneumonia/superimposed bacterial pneumonia. 2. Leukocytosis. 3. Anemia. 4. Obesity. 5. Debility. 6. The patient currently is on 2L nasal cannula with saturation of 93% to 99%. We will continue with Rocephin, Remdesivir, dexamethasone, zinc, vitamin C, and vitamin D, and Lovenox. We started Zithromax. Continue weaning off oxygen. Further management of this patient is based on daily findings on laboratory examination. Remdesivir was started on 01/08/2020. Please refer to chart for further information. Dictated by Jesús Lau PA-C (Al) Kimberly Silva MD /MODL /[id number]
--- NOTE | 2020-01-11 13:44 | Progress Note ---
DATE: SUBJECTIVE: The patient is afebrile. The patient has less dyspnea. She has no chest pain. PHYSICAL EXAMINATION: VITAL SIGNS: Blood pressure is 125/62, saturation is 98% on 3 L. HEENT: No facial swelling or erythema. CARDIAC: Regular rate and rhythm with normal S1, S2. LUNGS: Auscultation of lungs reveals crackles and rhonchi in both bases. There is no wheezing. ABDOMEN: Soft, nontender. There is no rebound or guarding. EXTREMITIES: No leg edema or calf tenderness. There is no cyanosis or clubbing. SKIN: No rashes. NEUROLOGICAL: No focal abnormalities. LABORATORY DATA: White blood cell count is 15.2 and hemoglobin is 9.6. The platelet count is 460. BUN to creatinine ratio is 39 to 0.86. Carbon dioxide is 20 and other electrolytes are within normal limits. IMPRESSION: 1. Acute respiratory failure. 2. Viral pneumonia and coronavirus disease-19 infection. 3. Diabetes. 4. Anemia, unspecified. PLAN: 1. Complete remdesivir. 2. Home O2 evaluation. 3. Complete dexamethasone. 4. The patient will need low-dose Eliquis or high-dose aspirin for one month upon discharge. Tanner Vazquez MD [facility]/MOD[facility] /[id number]
[2020-01-11] MEDS: REMDESIVIR 100MG/NS 100ML 100 MG in SODIUM CHLORIDE 0.9% 100 ML 100 ML IV SCH (14:49)
[2020-01-11] MEDS: CEFTRIAXONE SOD 1 GM/NS 50 ML 50 ML IV SCH (16:41)
--- NOTE | 2020-01-11 16:45 | NUR ---
ORDER WS RECEIVED FOR HOME O2 @ 2L/NC. CALL TO THE PT. PT WAS PROVIDED CHOICE; [facility] AND [facility]. PT CHOSE [facility]. CLINICALS FAXED TO [facility] @ OFF: [phone] / FAX: [phone]. NOTIFIED EKTA GUZMÁN. SPOKE Sharon MARTINEZ / BEDSIDE RN. STATES PT HAD 1 MORE DOSE OF REMDISIVIR AND WOULD DC HOME ON TOMORROW. CM WILL PROVIDE PORTABLE O2 TOMORROW.
--- NOTE | 2020-01-11 19:20 | NUR ---
Patient visited in room during nursing rounds. On droplet isolation for positive covid test. Alert and oriented x3. Ambulatory in room and uses bedside commode prn. Sinus rhythm (68) on telemetry reading. Pt on IV antibiotic treatment (IV Azithromycin and IV Rocephin) as scheduled. Also on IV anti-viral medication (Remdesivir) as scheduled. O2 saturation 95% on 3L NC. Call momin within reach. Will monitor pt closely.
[2020-01-11] MEDS: TEMAZEPAM 7.5 MG CAP PO PRN (20:45)
[2020-01-12] VITALS: BP 113/56
[2020-01-12 04:40] VITALS: BP 136/65
[2020-01-12] MEDS: LEVOTHYROXINE SODIUM 25 MCG TABLET PO SCH (06:00)
[2020-01-12] MEDS: DEXAMETHASONE SOD PHOS INJ 4 MG/ML VIAL IV SCH (06:00)
[2020-01-12 06:31] LABS: BASOPHILS % 0.1 % (0.0-1.0); EOSINOPHILS # (AUTO) 0.2 (0.0-0.4); EOSINOPHILS % 1.5 % (0.0-6.0); HEMATOCRIT 32.4 % (34.2-44.1); HEMOGLOBIN 10.2 g/dL (12.0-16.0); LYMPHOCYTES # (AUTO) 2.7 (1.0-3.2); LYMPHOCYTES % 17.2 % (18.0-39.1); MEAN CORPUSCULAR HEMOGLOBIN 26.8 pg (28-32); MEAN CORPUSCULAR HGB CONC 31.5 g/dL (31-35); MEAN CORPUSCULAR VOLUME 85.3 fL (81-99); MONOCYTES # (AUTO) 1.1 (0.2-0.8); MONOCYTES % 7.2 % (4.4-11.3); NEUTROPHILS # (AUTO) 11.3 (2.1-6.9); NEUTROPHILS % 73.4 % (38.7-80.0); PLATELET COUNT 439 x10e3/uL (140-360); RED CELL DISTRIBUTION WIDTH 17.2 % (11.7-14.4)
[2020-01-12 07:01] LABS: ALANINE AMINOTRANSFERASE 12 IU/L (0-55); ALBUMIN 2.6 g/dL (3.5-5.0); ALBUMIN/GLOBULIN RATIO 0.5 (0.8-2.0); ALKALINE PHOSPHATASE 102 IU/L (40-150); BLOOD UREA NITROGEN 31 mg/dL (7-26); BUN/CREATININE RATIO 38 (6-25); CALCIUM 8.4 mg/dL (8.4-10.2); CARBON DIOXIDE 22 mmol/L (22-29); CHLORIDE 106 mmol/L (98-107); CREATININE, SERUM 0.82 mg/dL (0.57-1.11); EST GLOMERULAR FILTRATION RATE > 60 ML/MIN (60-); GLUCOSE 195 mg/dL (74-118); SODIUM 133 mmol/L (136-145)
[2020-01-12 08:00] VITALS: BP 111/64
[2020-01-12] MEDS: PANTOPRAZOLE SOD 40 MG TABEC PO SCH (08:46)
[2020-01-12] MEDS: LORATADINE 10 MG TAB PO SCH (08:49)
[2020-01-12] MEDS: GABAPENTIN 300 MG CAP PO SCH (08:49)
[2020-01-12] MEDS: GLUCOSAMINE SULFATE 500 MG PO SCH (08:49)
[2020-01-12] MEDS: DOCUSATE SODIUM 100 MG CAP PO SCH (08:49)
[2020-01-12] MEDS: CLONAZEPAM 1 MG TAB PO SCH (08:49)
[2020-01-12] MEDS: ZINC SULFATE 220 MG CAP PO SCH (08:50)
[2020-01-12] MEDS: CHOLECALCIFEROL 400 UNIT TAB PO SCH (08:50)
[2020-01-12] MEDS: ASCORBIC ACID 500 MG TAB PO SCH (08:50)
[2020-01-12] MEDS: AMLODIPINE BESYLATE 5 MG TAB PO SCH (08:50)
[2020-01-12] MEDS: ENOXAPARIN SOD INJ 40 MG/0.4 ML SYR SC SCH (08:50)
[2020-01-12] MEDS: INSULIN REGULAR, HUMAN 100 UNIT/1 ML 3ML VIAL SQ SCH ×2 (09:10→12:39)
[2020-01-12] MEDS: INSULIN GLARGINE 100 UNITS/ML VIAL SQ SCH (09:10)
[2020-01-12 10:13] VITALS: BP 111/64
--- NOTE | 2020-01-12 11:09 | Progress Note ---
DATE: SUBJECTIVE: The patient is seen and evaluated. Available labs and notes reviewed. Discussed with Dr. Silva. REVIEW OF SYSTEMS: No nausea, vomiting, fever, chills, chest pain, shortness of breath. Feels much better and she wants to go home. PHYSICAL EXAMINATION: VITAL SIGNS: Temperature 97.6, pulse 65, respiration 26, blood pressure 111/64. GENERAL: Alert and oriented. No acute distress. The patient is on 2 L of O2 nasal cannula with saturation of 90% to 97%. MEDICATIONS: Medication list reviewed. From ID point of view, the patient is on dexamethasone, Rocephin, Lovenox, vitamin C, zinc sulfate, vitamin D, and today is last day of remdesivir. LABORATORY STUDIES: White count of 15.44, hemoglobin 10.2, platelet 439. Sodium 133, potassium 4. Creatinine 0.82. Chronic virus PCR detected on 01/06. Microbiology blood culture negative, 72 hours. RADIOLOGY STUDIES: No new radiology studies available. ASSESSMENT AND PLAN: 1. Coronavirus disease-19 pneumonia with superimposed bacterial pneumonia. 2. Leukocytosis. 3. Obesity. 4. Anemia. 5. Debility. 6. Status post Zithromax. Today is last day of remdesivir. Stop Rocephin after today. As a matter of fact, we can stop the Rocephin today. Remains on dexamethasone. The patient might be discharged home with O2 nasal cannula. Discussed with Deng, the nurse practitioner with attending service. Discussed with Dr. Silva as well. Please refer to chart for information. Dictated by Jesús Lau PA-C (Al) Kimberly Silva MD /MODL /[id number]
[2020-01-12 12:00] VITALS: BP 123/50
[2020-01-12] MEDS: REMDESIVIR IV SCH ×2 (12:26→12:43)
[2020-01-12] MEDS: [UNRECOGNIZED DRUG - OTHER] IV SCH ×2 (12:26→12:43)
[2020-01-12] MEDS ORDERED: DEXAMETHASONE4 MG PO (12:53)
[2020-01-12] MEDS ORDERED: ELIQUIS2.5 MG PO (12:53)
[2020-01-12] MEDS ORDERED: PROAIR HFA INH8.5 GM INH (12:53)
[2020-01-12] MEDS ORDERED: ACETAMINOPHEN325 M1 PO (12:53)
--- NOTE | 2020-01-12 13:48 | NUR ---
KIM SPOKE W JUAN THIS AM. STATES SHE ANTICIPATES THE PT WILL DC HOME TODAY. PORTABLE CONCENTRATOR 3 BAG; ADAPTOR FOR CAR / HOME W TUBING EXTENSION ; WAS DELIVERED TO THE NURSE. INSTRUCTIONS GIVEN ON USE OF PORTABLE O2. JUAN WILL PROVIDE O2 TO THE PT UPON DC. NO CONCENTRATOR WILL GO THE HOME.
--- NOTE | 2020-01-12 15:53 | NUR ---
patient discharged. IV removed- bleeding controlled and dressing applied. telemetry removed- cleansed and returned. patient given discharge instructions and all prescriptions. denied any questions. patient wheeled off unit with patient's own oxygen concentrator.
--- NOTE | 2020-01-12 17:27 | Progress Note ---
DATE: SUBJECTIVE: The patient is afebrile. OBJECTIVE: VITAL SIGNS: Stable. HEENT: No facial swelling or erythema. CARDIAC: Reveals regular rate and rhythm with normal S1, S2. LUNGS: Auscultation of lungs reveals rhonchorous breath sounds bilaterally. There is no wheezing. ABDOMEN: Soft and nontender. There is no rebound or guarding. EXTREMITIES: No leg edema or calf tenderness. There is no cyanosis or clubbing. SKIN: No rashes. NEUROLOGICAL: No focal abnormalities. IMPRESSION: 1. Viral pneumonia and coronavirus disease-19 infection. 2. Diabetes. 3. Anemia. PLAN: 1. Home O2 evaluation. 2. Complete dexamethasone. 3. Low-dose Eliquis on discharge. Tanner Vazquez MD [facility]/MOD[facility] /[id number]
--- NOTE | 2020-01-15 12:59 | Discharge Summary ---
ADMISSION DIAGNOSES: Coronavirus disease 2019 pneumonia with sepsis; acute respiratory distress syndrome with hypoxia, present on admission; anxiety; type 2 diabetes; hypertension; hypothyroidism; hyperlipidemia. DISCHARGE DIAGNOSES: Coronavirus disease 2019 pneumonia with sepsis; acute respiratory distress syndrome with hypoxia, present on admission; anxiety; type 2 diabetes; hypertension; hypothyroidism; hyperlipidemia; rule out bacteremia. HISTORY: Type 2 diabetes, anxiety, GERD, asthma, hypertension, hyperlipidemia, OA, neuropathy, hypothyroidism. SURGICAL HISTORY: Left ankle surgery, left knee surgery. FAMILY HISTORY: The patient's mother and father had diabetes. The patient's father had a stroke. SOCIAL HISTORY: Noncontributory. HOSPITAL COURSE: A 59-year-old female admits with complaints of worsening dyspnea and cough for 2 to 3 days. On admission, chest x-ray showed bilateral multifocal pneumonia. She was hypoxic in the ER and placed on oxygen. Her coronavirus came back positive. Blood cultures were negative. The patient was started on Zithromax, Rocephin, remdesivir, Decadron, Lovenox, convalescent plasma. ID and Pulmonology were consulted. Zinc, vitamin C, and vitamin D were also started. After a few days of IV antibiotics, the patient is feeling better and able to wean down her oxygen. She will discharge home with 2 L/minute nasal cannula. She was given a new prescription for Tylenol, ProAir, Norvasc, Eliquis, and dexamethasone. She will follow up with primary care in 1 to [address] Silva as discussed. The patient understands instructions and agrees to plan. Vital signs stable, the patient is afebrile. Dictated by Freda Recio NP MD [facility]/MOD[facility] /[id number]
== END 2020-01-12 15:53 | disposition home or self-care (01) | DRG 177 ==
LOC: ER 17:05 → OBSVTOIN 17:29 → INTOOBSV 17:29 → ERHOLD 17:29 → INTOOBSV 01-08 06:29 → OBSVTOIN 01-08 06:29 → MED/SURG3 01-08 11:05
PROVIDERS: ADMIT Internal Medicine; ATTEND Internal Medicine
PROC: 30233K1 Transfusion of Nonautologous Frozen Plasma into Peripheral Vein, Percutaneous Approach (ICD-10-PCS; principal; 2020-01-09)
DX: U07.1 COVID-19 (principal); J12.89 Other viral pneumonia; J15.9 Unspecified bacterial pneumonia; J96.01 Acute respiratory failure with hypoxia; J80 Acute respiratory distress syndrome; Z68.42 Body mass index [BMI] 45.0-49.9, adult; I10 Essential (primary) hypertension; E78.5 Hyperlipidemia, unspecified; M19.90 Unspecified osteoarthritis, unspecified site; E78.00 Pure hypercholesterolemia, unspecified; E11.42 Type 2 diabetes mellitus with diabetic polyneuropathy; K21.9 Gastro-esophageal reflux disease without esophagitis; F41.9 Anxiety disorder, unspecified; D64.9 Anemia, unspecified; E86.0 Dehydration; R53.81 Other malaise; E66.9 Obesity, unspecified; E03.9 Hypothyroidism, unspecified; Z83.3 Family history of diabetes mellitus; Z82.3 Family history of stroke; Z79.4 Long term (current) use of insulin
CPT/HCPCS: 36415; 71045; 80048; 80053; 80061; 81001; 82550; 82553; 82948; 83036; 83605; 83735; 83880; 84100; 84443; 84484; 85025; 85610; 85730; 86900; 87040; 93005; 96372; 97139; 99284; J0456; J0696; J1100; J1650; J1815; J1817; J7030; J7050; P9017; U0002

== ENCOUNTER 2020-11-01 19:49 | Emergency (ER) | payer OTHER ==
[~2020-11-01] VITALS: Ht 154.9 cm; Wt 115.2 kg
[~2020-11-01 19:49] MED LIST changes: +ACETAMINOPHEN325 M1 PO; +DEXAMETHASONE4 MG PO; +ELIQUIS2.5 MG PO; +NORVASC5 MG PO; +PROAIR HFA INH8.5 GM INH
[2020-11-01] MEDS ORDERED: SODIUM CHLORIDE 0.9% 1000ML 1,000 ML IV STA ×2 (20:10)
[2020-11-01 20:26] LABS: BASOPHILS # (AUTO) 0.1 (0.0-0.1); BASOPHILS % 0.5 % (0.0-1.0); EOSINOPHILS # (AUTO) 0.3 (0.0-0.4); EOSINOPHILS % 2.2 % (0.0-6.0); HEMATOCRIT 32.4 % (34.2-44.1); HEMOGLOBIN 10.3 g/dL (12.0-16.0); LYMPHOCYTES # (AUTO) 3.1 (1.0-3.2); LYMPHOCYTES % 23.1 % (18.0-39.1); MEAN CORPUSCULAR HEMOGLOBIN 26.2 pg (28-32); MEAN CORPUSCULAR HGB CONC 31.8 g/dL (31-35); MEAN CORPUSCULAR VOLUME 82.4 fL (81-99); MONOCYTES # (AUTO) 0.6 (0.2-0.8); MONOCYTES % 4.1 % (4.4-11.3); NEUTROPHILS # (AUTO) 9.3 (2.1-6.9); NEUTROPHILS % 69.7 % (38.7-80.0); PLATELET COUNT 380 x10e3/uL (140-360); RED BLOOD COUNT 3.93 x10e6/uL (3.6-5.1); RED CELL DISTRIBUTION WIDTH 16.4 % (11.7-14.4)
[2020-11-01 20:39] LABS: ALANINE AMINOTRANSFERASE 9 IU/L (0-55); ALBUMIN 3.6 g/dL (3.5-5.0); ALBUMIN/GLOBULIN RATIO 0.8 (0.8-2.0); ALKALINE PHOSPHATASE 111 IU/L (40-150); ANION GAP 14.7 mmol/L (8-16); BLOOD UREA NITROGEN 16 mg/dL (7-26); BUN/CREATININE RATIO 19 (6-25); CALCIUM 8.9 mg/dL (8.4-10.2); CARBON DIOXIDE 24 mmol/L (22-29); CHLORIDE 104 mmol/L (98-107); CREATINE KINASE 65 IU/L (29-168); CREATININE, SERUM 0.83 mg/dL (0.57-1.11); EST GLOMERULAR FILTRATION RATE > 60 ML/MIN (60-); GLUCOSE 157 mg/dL (74-118); POTASSIUM 4.7 mmol/L (3.5-5.1); SODIUM 138 mmol/L (136-145)
[2020-11-01 21:11] LABS: CLARITY,URINE SL CLOUDY (CLEAR); COLOR,URINE YELLOW (YELLOW)
[2020-11-01 21:12] LABS: KETONES,URINE NEGATIVE (NEGATIVE); LEUKOCYTE ESTERASE ,URINE TRACE (NEGATIVE); NITRITE,URINE POSITIVE (NEGATIVE); PROTEIN,URINE DIPSTICK NEGATIVE (NEGATIVE); URINE UROBILINOGEN 0.2 mg/dL (0.2 - 1)
[2020-11-01] MEDS ORDERED: KETOROLAC TROMETHAMINE 30 MG/ML VIAL IV STA (21:18)
[2020-11-01 21:24] LABS: BACTERIA,URINE MANY /HPF; EPITHELIAL CELLS,URINE RARE /LPF; RBC,URINE 0-5 /HPF (0-5)
[2020-11-01] MEDS ORDERED: CEFTRIAXONE SOD 1 GM in SODIUM CHLORIDE 0.9% 50ML 50 ML IV ONE (21:30)
[2020-11-01] MEDS ORDERED: CEFTRIAXONE SOD 1 GM/50 ML BAG IV ONE (21:30)
[2020-11-01] MEDS ORDERED: CEPHALEXIN500 MG PO (21:49)
[2020-11-01] MEDS ORDERED: PYRIDIUM100 MG PO (21:49)
== END 2020-11-02 00:20 | disposition home or self-care (01) ==
LOC: ER 20:08
DX: R10.32 Left lower quadrant pain (principal); M54.5 Low back pain; R11.2 Nausea with vomiting, unspecified; I10 Essential (primary) hypertension; E11.65 Type 2 diabetes mellitus with hyperglycemia; E78.5 Hyperlipidemia, unspecified; G62.9 Polyneuropathy, unspecified; E78.00 Pure hypercholesterolemia, unspecified
CPT/HCPCS: 36415; 74176; 80053; 81001; 82550; 82553; 84484; 85025; 99284

== ENCOUNTER 2020-12-13 12:42 | Observation (INO) | payer OTHER ==
[~2020-12-13] VITALS: Ht 154.9 cm; Wt 115.2 kg
[~2020-12-13 12:42] MED LIST changes: +CEPHALEXIN500 MG PO; +PYRIDIUM100 MG PO
[2020-12-13 13:08] LABS: BASOPHILS % 0.4 % (0.0-1.0); EOSINOPHILS # (AUTO) 0.2 (0.0-0.4); EOSINOPHILS % 2.8 % (0.0-6.0); HEMATOCRIT 30.1 % (34.2-44.1); HEMOGLOBIN 9.2 g/dL (12.0-16.0); LYMPHOCYTES # (AUTO) 2.3 (1.0-3.2); LYMPHOCYTES % 33.1 % (18.0-39.1); MEAN CORPUSCULAR HEMOGLOBIN 25.6 pg (28-32); MEAN CORPUSCULAR HGB CONC 30.6 g/dL (31-35); MEAN CORPUSCULAR VOLUME 83.8 fL (81-99); MONOCYTES # (AUTO) 0.2 (0.2-0.8); MONOCYTES % 3.5 % (4.4-11.3); NEUTROPHILS # (AUTO) 4.1 (2.1-6.9); NEUTROPHILS % 59.9 % (38.7-80.0); PLATELET COUNT 190 x10e3/uL (140-360); RED BLOOD COUNT 3.59 x10e6/uL (3.6-5.1); RED CELL DISTRIBUTION WIDTH 16.3 % (11.7-14.4)
[2020-12-13 13:22] LABS: ALANINE AMINOTRANSFERASE 7 IU/L (0-55); ALBUMIN 3.6 g/dL (3.5-5.0); ALBUMIN/GLOBULIN RATIO 0.8 (0.8-2.0); ALKALINE PHOSPHATASE 103 IU/L (40-150); ANION GAP 16.7 mmol/L (8-16); BLOOD UREA NITROGEN 19 mg/dL (7-26); BUN/CREATININE RATIO 21 (6-25); CALCIUM 8.8 mg/dL (8.4-10.2); CARBON DIOXIDE 20 mmol/L (22-29); CHLORIDE 105 mmol/L (98-107); CREATINE KINASE 40 IU/L (29-168); CREATININE, SERUM 0.92 mg/dL (0.57-1.11); EST GLOMERULAR FILTRATION RATE > 60 ML/MIN (60-); GLUCOSE 121 mg/dL (74-118); MAGNESIUM 2.1 MG/DL (1.3-2.1); POTASSIUM 4.7 mmol/L (3.5-5.1); SODIUM 137 mmol/L (136-145)
[2020-12-13 13:42] LABS: THYROID STIMULATING HORMONE 3.024 uIU/mL (0.350-4.940)
[2020-12-13 13:44] LABS: CLARITY,URINE CLEAR (CLEAR); COLOR,URINE YELLOW (YELLOW); KETONES,URINE NEGATIVE (NEGATIVE); LEUKOCYTE ESTERASE ,URINE NEGATIVE (NEGATIVE); NITRITE,URINE NEGATIVE (NEGATIVE); PROTEIN,URINE DIPSTICK NEGATIVE (NEGATIVE); URINE UROBILINOGEN 0.2 mg/dL (0.2 - 1)
[2020-12-13 13:54] LABS: BACTERIA,URINE MODERATE /HPF; EPITHELIAL CELLS,URINE FEW /LPF; RBC,URINE 0-5 /HPF (0-5)
[2020-12-13 14:49] LABS: AMPHETAMINES SCREEN,URINE NEGATIVE (NEGATIVE); BENZODIAZEPINES SCREEN,URINE NEGATIVE (NEGATIVE); PHENCYCLIDINE SCREEN,URINE NEGATIVE (NEGATIVE)
[2020-12-13] MEDS: CEFTRIAXONE 1 GM in SODIUM CHLORIDE 0.9% 50ML 50 ML IV SCH (16:39)
[2020-12-13] MEDS: ASPIRIN 81 MG ENTERIC COATED PO SCH (16:39)
[2020-12-13] MEDS: SODIUM CHLORIDE 0.9% 1000ML 1,000 ML IV SCH (16:39)
[2020-12-13 18:07] VITALS: BP 92/52
[2020-12-13 20:00] VITALS: BP 117/56
[2020-12-13] MEDS ORDERED: TRAZODONE HCL150 MG (20:09)
[2020-12-13] MEDS ORDERED: LISINOPRIL10 MG (20:09)
[2020-12-13] MEDS ORDERED: HYDROCODON-ACE1 EA11 (20:09)
[2020-12-13] MEDS ORDERED: PRAVASTATIN SOD10 MG (20:09)
[2020-12-13 20:12] VITALS: BP 117/56
[2020-12-13 20:39] VITALS: BP 117/56
[2020-12-13 20:42] LABS: CREATINE KINASE 32 IU/L (29-168)
[2020-12-14] VITALS (7 sets, daily range): BP systolic 113–147; BP diastolic 38–90
[2020-12-14] MEDS: SODIUM CHLORIDE 0.9% 1000ML 1,000 ML IV SCH ×2 (05:30→16:59)
[2020-12-14 06:23] LABS: BASOPHILS % 0.5 % (0.0-1.0); EOSINOPHILS # (AUTO) 0.3 (0.0-0.4); EOSINOPHILS % 3.2 % (0.0-6.0); HEMATOCRIT 30.9 % (34.2-44.1); HEMOGLOBIN 9.3 g/dL (12.0-16.0); LYMPHOCYTES % 36.5 % (18.0-39.1); MEAN CORPUSCULAR HEMOGLOBIN 25.5 pg (28-32); MEAN CORPUSCULAR HGB CONC 30.1 g/dL (31-35); MEAN CORPUSCULAR VOLUME 84.7 fL (81-99); MONOCYTES # (AUTO) 0.5 (0.2-0.8); MONOCYTES % 5.6 % (4.4-11.3); NEUTROPHILS # (AUTO) 4.4 (2.1-6.9); PLATELET COUNT 282 x10e3/uL (140-360); RED BLOOD COUNT 3.65 x10e6/uL (3.6-5.1); RED CELL DISTRIBUTION WIDTH 16.3 % (11.7-14.4)
[2020-12-14 06:46] LABS: ALANINE AMINOTRANSFERASE 7 IU/L (0-55); ALBUMIN/GLOBULIN RATIO 0.8 (0.8-2.0); ALKALINE PHOSPHATASE 92 IU/L (40-150); ANION GAP 11.2 mmol/L (8-16); BLOOD UREA NITROGEN 14 mg/dL (7-26); BUN/CREATININE RATIO 18 (6-25); CALCIUM 8.3 mg/dL (8.4-10.2); CARBON DIOXIDE 24 mmol/L (22-29); CHLORIDE 109 mmol/L (98-107); EST GLOMERULAR FILTRATION RATE > 60 ML/MIN (60-); GLUCOSE 129 mg/dL (74-118); POTASSIUM 4.2 mmol/L (3.5-5.1); SODIUM 140 mmol/L (136-145)
[2020-12-14 07:16] LABS: CREATINE KINASE 24 IU/L (29-168)
[2020-12-14] MEDS: CEFTRIAXONE 1 GM in SODIUM CHLORIDE 0.9% 50ML 50 ML IV SCH (11:00)
[2020-12-14] MEDS ORDERED: HYDROCODONE/APAP 5MG-325MG TAB PO PRN (14:45)
[2020-12-14] MEDS ORDERED: ALBUTEROL SULFATE HFA 8GM INHALATION AEROSOL INH PRN (14:45)
[2020-12-14 16:14] LABS: CREATINE KINASE 32 IU/L (29-168)
[2020-12-14] MEDS: APIXAB 2.5 MG TABLET PO SCH (16:57)
[2020-12-14] MEDS: METFORMIN HCL 500 MG TAB CR PO SCH (16:57)
[2020-12-14] MEDS ORDERED: TRAZODONE HCL 50 MG TAB PO PRN (20:15)
[2020-12-15 05:30] LABS: HEMATOCRIT 30.4 % (34.2-44.1); HEMOGLOBIN 9.4 g/dL (12.0-16.0); MEAN CORPUSCULAR HEMOGLOBIN 25.8 pg (28-32); MEAN CORPUSCULAR HGB CONC 30.9 g/dL (31-35); MEAN CORPUSCULAR VOLUME 83.5 fL (81-99); NEUTROPHILS % 53.5 % (38.7-80.0); PLATELET COUNT 309 x10e3/uL (140-360); RED BLOOD COUNT 3.64 x10e6/uL (3.6-5.1); RED CELL DISTRIBUTION WIDTH 16.1 % (11.7-14.4)
[2020-12-15 05:31] LABS: BASOPHILS % 0.4 % (0.0-1.0); EOSINOPHILS # (AUTO) 0.3 (0.0-0.4); EOSINOPHILS % 3.2 % (0.0-6.0); LYMPHOCYTES # (AUTO) 3.3 (1.0-3.2); LYMPHOCYTES % 36.5 % (18.0-39.1); MONOCYTES # (AUTO) 0.6 (0.2-0.8); MONOCYTES % 6.2 % (4.4-11.3); NEUTROPHILS # (AUTO) 4.9 (2.1-6.9)
[2020-12-15 05:45] LABS: ANION GAP 13.1 mmol/L (8-16); BLOOD UREA NITROGEN 11 mg/dL (7-26); BUN/CREATININE RATIO 14 (6-25); CALCIUM 8.4 mg/dL (8.4-10.2); CARBON DIOXIDE 23 mmol/L (22-29); CHLORIDE 109 mmol/L (98-107); CREATININE, SERUM 0.78 mg/dL (0.57-1.11); EST GLOMERULAR FILTRATION RATE > 60 ML/MIN (60-); GLUCOSE 102 mg/dL (74-118); POTASSIUM 4.1 mmol/L (3.5-5.1); SODIUM 141 mmol/L (136-145)
[2020-12-15] MEDS ORDERED: LEVOTHYROXINE SODIUM 25 MCG TABLET PO SCH (06:30)
[2020-12-15] MEDS ORDERED: LISINOPRIL 10 MG TAB PO SCH (09:00)
[2020-12-15] MEDS ORDERED: FAMOTIDINE 20 MG TAB PO SCH (09:00)
[2020-12-15] MEDS: APIXAB 2.5 MG TABLET PO SCH (09:15)
[2020-12-15] MEDS: ASPIRIN 81 MG ENTERIC COATED PO SCH (09:15)
[2020-12-15] MEDS: CEFTRIAXONE 1 GM in SODIUM CHLORIDE 0.9% 50ML 50 ML IV SCH (09:15)
[2020-12-15] MEDS: METFORMIN HCL 500 MG TAB CR PO SCH (09:15)
[2020-12-15 11:52] VITALS: BP 137/50
== END 2020-12-15 13:50 | disposition home or self-care (01) ==
LOC: ER 13:10 → ERHOLD 16:17 → MED/SURG2 17:34
PROVIDERS: ADMIT Internal Medicine; ATTEND Internal Medicine
DX: R47.81 Slurred speech (principal); R42 Dizziness and giddiness; Z86.73 Personal history of transient ischemic attack (TIA), and cerebral infarction without residual deficits; I10 Essential (primary) hypertension; E11.9 Type 2 diabetes mellitus without complications; E78.5 Hyperlipidemia, unspecified; F17.210 Nicotine dependence, cigarettes, uncomplicated; G89.4 Chronic pain syndrome; R53.1 Weakness; Z86.718 Personal history of other venous thrombosis and embolism; Z82.49 Family history of ischemic heart disease and other diseases of the circulatory system; D64.9 Anemia, unspecified; E66.01 Morbid (severe) obesity due to excess calories; Z68.42 Body mass index [BMI] 45.0-49.9, adult; Z20.822 Contact with and (suspected) exposure to COVID-19
CPT/HCPCS: 36415 ×3; 70450; 70551; 71045; 80048; 80053 ×2; 80307; 81001; 82550 ×2; 82553 ×2; 82948 ×3; 83735; 84443; 84484 ×2; 85025 ×3; 93005; 93880; 97116; 97161; 99284; G0378 ×3; J0696 ×3; J7030; U0002

== ENCOUNTER 2021-05-30 19:15 | Emergency (ER) | payer OTHER ==
[~2021-05-30] VITALS: Ht 154.9 cm; Wt 99.8 kg
[~2021-05-30 19:15] MED LIST changes: +HYDROCODON-ACE1 EA11; +LISINOPRIL10 MG; +PRAVASTATIN SOD10 MG; +TRAZODONE HCL150 MG
[2021-05-30 19:54] LABS: BASOPHILS # (AUTO) 0.1 (0.0-0.1); BASOPHILS % 0.6 % (0.0-1.0); EOSINOPHILS # (AUTO) 0.5 (0.0-0.4); EOSINOPHILS % 4.1 % (0.0-6.0); HEMATOCRIT 30.8 % (34.2-44.1); HEMOGLOBIN 9.5 g/dL (12.0-16.0); LYMPHOCYTES # (AUTO) 2.9 (1.0-3.2); LYMPHOCYTES % 26.7 % (18.0-39.1); MEAN CORPUSCULAR HGB CONC 30.8 g/dL (31-35); MEAN CORPUSCULAR VOLUME 84.4 fL (81-99); MONOCYTES # (AUTO) 0.5 (0.2-0.8); MONOCYTES % 4.8 % (4.4-11.3); NEUTROPHILS % 63.5 % (38.7-80.0); PLATELET COUNT 310 x10e3/uL (140-360); RED BLOOD COUNT 3.65 x10e6/uL (3.6-5.1); RED CELL DISTRIBUTION WIDTH 16.9 % (11.7-14.4)
[2021-05-30 20:14] LABS: ALBUMIN 3.8 g/dL (3.5-5.0); ALBUMIN/GLOBULIN RATIO 0.8 (0.8-2.0); ANION GAP 12.2 mmol/L (8-16); CALCIUM 8.8 mg/dL (8.4-10.2); CREATININE, SERUM 1.02 mg/dL (0.57-1.11); POTASSIUM 4.2 mmol/L (3.5-5.1)
[2021-05-30 20:20] LABS: CREATINE KINASE MB 0.7 ng/mL (0-5.0)
== END 2021-05-30 22:15 | disposition home or self-care (01) ==
LOC: ER 19:48
DX: R05.9 Cough, unspecified (principal); J40 Bronchitis, not specified as acute or chronic; J06.9 Acute upper respiratory infection, unspecified; Z20.822 Contact with and (suspected) exposure to COVID-19; I10 Essential (primary) hypertension; E11.40 Type 2 diabetes mellitus with diabetic neuropathy, unspecified; E78.5 Hyperlipidemia, unspecified; E78.00 Pure hypercholesterolemia, unspecified
CPT/HCPCS: 36415; 71045; 80053; 82550; 82553; 83880; 84484; 85025; 93005; 99284; U0002

== ENCOUNTER 2022-12-15 09:10 | Emergency (ER) | payer OTHER ==
[~2022-12-15] VITALS: Ht 154.9 cm; Wt 99.8 kg
[2022-12-15] MEDS ORDERED: KETOROLAC TROMETHAMINE 30 MG/ML VIAL IV STA (09:35)
[2022-12-15] MEDS ORDERED: HYDROCODONE/APAP 5MG-325MG TAB PO ONE (09:45)
[2022-12-15 09:46] LABS: BASOPHILS # (AUTO) 0.1 (0.0-0.1); BASOPHILS % 0.3 % (0.0-1.0); EOSINOPHILS # (AUTO) 0.2 (0.0-0.4); HEMATOCRIT 30.8 % (34.2-44.1); HEMOGLOBIN 10.1 g/dL (12.0-16.0); LYMPHOCYTES # (AUTO) 2.8 (1.0-3.2); LYMPHOCYTES % 18.2 % (18.0-39.1); MEAN CORPUSCULAR HEMOGLOBIN 27.8 pg (28-32); MEAN CORPUSCULAR HGB CONC 32.8 g/dL (31-35); MEAN CORPUSCULAR VOLUME 84.8 fL (81-99); MONOCYTES # (AUTO) 0.8 (0.2-0.8); MONOCYTES % 5.5 % (4.4-11.3); NEUTROPHILS # (AUTO) 11.4 (2.1-6.9); NEUTROPHILS % 74.4 % (38.7-80.0); PLATELET COUNT 305 x10e3/uL (140-360); RED BLOOD COUNT 3.63 x10e6/uL (3.6-5.1); RED CELL DISTRIBUTION WIDTH 16.7 % (11.7-14.4)
[2022-12-15 09:50] LABS: CLARITY,URINE CLOUDY (CLEAR); COLOR,URINE YELLOW (YELLOW); KETONES,URINE NEGATIVE (NEGATIVE); LEUKOCYTE ESTERASE ,URINE SMALL (NEGATIVE); NITRITE,URINE POSITIVE (NEGATIVE); PROTEIN,URINE DIPSTICK 1+ (NEGATIVE); URINE UROBILINOGEN 0.2 mg/dL (0.2 - 1)
[2022-12-15 09:55] LABS: ANION GAP 13.4 mmol/L (8-16); CALCIUM 9.1 mg/dL (8.4-10.2); CREATININE, SERUM 0.97 mg/dL (0.57-1.11); POTASSIUM 4.4 mmol/L (3.5-5.1)
[2022-12-15 10:05] LABS: BACTERIA,URINE MANY /HPF; EPITHELIAL CELLS,URINE MODERATE /LPF; WBC,URINE (MAN) 21-50 /HPF (0-5)
[2022-12-15] MEDS ORDERED: ULTRAM 50MG50 MG PO (13:18)
[2022-12-15] MEDS ORDERED: CEFUROXIME250 MG PO (13:27)
[2022-12-15 13:49] VITALS: O2SAT 97
== END 2022-12-15 13:40 | disposition home or self-care (01) ==
LOC: ER 09:13
DX: M47.816 Spondylosis without myelopathy or radiculopathy, lumbar region (principal); N39.0 Urinary tract infection, site not specified; R30.0 Dysuria; E11.65 Type 2 diabetes mellitus with hyperglycemia; I10 Essential (primary) hypertension; E66.9 Obesity, unspecified; F17.210 Nicotine dependence, cigarettes, uncomplicated
CPT/HCPCS: 36415; 74176; 80048; 81001; 85025; 87086; 87186; 99284; J0696; J1885

== ENCOUNTER 2023-10-15 13:16 | Observation (INO) | payer OTHER ==
[~2023-10-15] VITALS: Ht 160 cm; Wt 102.1 kg
[~2023-10-15 13:16] MED LIST changes: +CEFDINIR300 MG PO; +CEFUROXIME250 MG PO; +ULTRAM 50MG50 MG PO
[2023-10-15 15:10] LABS: BASOPHILS # (AUTO) 0.1 (0.0-0.1); BASOPHILS % 0.5 % (0.0-1.0); EOSINOPHILS # (AUTO) 0.1 (0.0-0.4); EOSINOPHILS % 0.8 % (0.0-6.0); HEMATOCRIT 35.8 % (34.2-44.1); HEMOGLOBIN 12.1 g/dL (12.0-16.0); LYMPHOCYTES # (AUTO) 2.1 (1.0-3.2); LYMPHOCYTES % 22.7 % (18.0-39.1); MEAN CORPUSCULAR HEMOGLOBIN 29.3 pg (28-32); MEAN CORPUSCULAR HGB CONC 33.8 g/dL (31-35); MEAN CORPUSCULAR VOLUME 86.7 fL (81-99); MONOCYTES # (AUTO) 0.3 (0.2-0.8); MONOCYTES % 3.2 % (4.4-11.3); NEUTROPHILS # (AUTO) 6.6 (2.1-6.9); NEUTROPHILS % 72.4 % (38.7-80.0); PLATELET COUNT 272 x10e3/uL (140-360); RED BLOOD COUNT 4.13 x10e6/uL (3.6-5.1); RED CELL DISTRIBUTION WIDTH 15.1 % (11.7-14.4)
[2023-10-15 15:22] LABS: ALBUMIN 3.6 g/dL (3.5-5.0); ALBUMIN/GLOBULIN RATIO 0.7 (0.8-2.0); ANION GAP 18.9 mmol/L (8-16); BILIRUBIN,TOTAL 0.5 mg/dL (0.2-1.2); CALCIUM 9.6 mg/dL (8.4-10.2); CREATININE, SERUM 1.37 mg/dL (0.57-1.11); POTASSIUM 4.9 mmol/L (3.5-5.1); TOTAL PROTEIN 8.5 g/dL (6.5-8.1)
[2023-10-15] MEDS: LACTATED RINGER'S 1,000 ML INJ ONE (15:32)
[2023-10-15] MEDS: INSULIN REGULAR, HUMAN 100 UNIT/1 ML IV ONE (15:36)
[2023-10-15] MEDS: INSULIN GLARGINE 100 UNITS/ML VIAL SQ STA (15:39)
[2023-10-15 16:04] VITALS: PULSE 72; RESP 18; O2SAT 98
[2023-10-15] MEDS: SODIUM CHLORIDE 0.9% 1000ML 1,000 ML IV SCH ×2 (16:23→22:43)
[2023-10-15 17:10] VITALS: BP 134/70; PULSE 77; RESP 19; TEMP 98.2; O2SAT 100
[2023-10-15] MEDS ORDERED: DEXTROSE 50% SYRINGE 50 ML IV PRN ×2 (19:45→22:15)
[2023-10-15 20:00] VITALS: BP 100/53; PULSE 73; RESP 18; TEMP 98.1; O2SAT 100
[2023-10-15 21:00] VITALS: BP 100/53; PULSE 73; RESP 18; TEMP 98.1; O2SAT 100
[2023-10-15] MEDS ORDERED: INSULIN GLARGINE 100 UNITS/ML VIAL SQ SCH (21:00)
[2023-10-15] MEDS ORDERED: INSULIN LISPRO 100 UNIT/1 ML 3ML VIAL SQ SCH (21:00)
[2023-10-15] MEDS ORDERED: TRAMADOL HCL 50 MG TAB PO SCH (22:00)
[2023-10-15] MEDS ORDERED: HYDROCODON-ACE1 EA11 PO (22:18)
[2023-10-15] MEDS ORDERED: ZOLPIDEM TARTRAT5 MG PO (22:18)
[2023-10-15] MEDS ORDERED: ATIVAN1 MG PO (22:18)
[2023-10-15] MEDS ORDERED: CYCLOBENZAPRINE5 MG PO (22:18)
[2023-10-15] MEDS ORDERED: METFORMIN HCL1000 MG PO (22:18)
[2023-10-15] MEDS: TRAMADOL HCL 50 MG TAB PO SCH (22:43)
[2023-10-15] MEDS: INSULIN GLARGINE 100 UNITS/ML VIAL SQ ONE (22:48)
[2023-10-15] MEDS: INSULIN LISPRO 100 UNIT/1 ML 3ML VIAL SQ ONE (22:48)
[2023-10-15] MEDS ORDERED: HYDROCODONE/APAP 5MG-325MG TAB PO PRN (23:00)
[2023-10-15] MEDS: ZOLPIDEM TARTRATE 5 MG TAB PO PRN (23:34)
[2023-10-16] VITALS (9 sets, daily range): BP systolic 104–130; BP diastolic 50–70; PULSE 71–78; RESP 17–18; TEMP 97.8–98.2; O2SAT 98–100
[2023-10-16 07:14] LABS: BASOPHILS % 0.5 % (0.0-1.0); EOSINOPHILS # (AUTO) 0.2 (0.0-0.4); EOSINOPHILS % 2.4 % (0.0-6.0); HEMATOCRIT 33.2 % (34.2-44.1); HEMOGLOBIN 10.8 g/dL (12.0-16.0); LYMPHOCYTES # (AUTO) 2.4 (1.0-3.2); LYMPHOCYTES % 28.4 % (18.0-39.1); MEAN CORPUSCULAR HEMOGLOBIN 28.3 pg (28-32); MEAN CORPUSCULAR HGB CONC 32.5 g/dL (31-35); MEAN CORPUSCULAR VOLUME 86.9 fL (81-99); MONOCYTES # (AUTO) 0.4 (0.2-0.8); MONOCYTES % 4.7 % (4.4-11.3); NEUTROPHILS # (AUTO) 5.3 (2.1-6.9); NEUTROPHILS % 63.6 % (38.7-80.0); PLATELET COUNT 240 x10e3/uL (140-360); RED BLOOD COUNT 3.82 x10e6/uL (3.6-5.1); RED CELL DISTRIBUTION WIDTH 14.7 % (11.7-14.4); WHITE BLOOD COUNT 8.34 x10e3/uL (4.8-10.8)
[2023-10-16 07:53] LABS: CALCIUM 8.8 mg/dL (8.4-10.2); CREATININE, SERUM 0.93 mg/dL (0.57-1.11)
[2023-10-16] MEDS ORDERED: LEVOTHYROXINE SODIUM 25 MCG TABLET PO SCH (09:00)
[2023-10-16] MEDS ORDERED: GABAPENTIN 300 MG CAP PO SCH (09:00)
[2023-10-16] MEDS: LORAZEPAM 1 MG TAB PO PRN (09:03)
[2023-10-16] MEDS: GABAPENTIN 300 MG CAP PO SCH (09:04)
[2023-10-16] MEDS: HYDROCODONE/APAP 5MG-325MG TAB PO PRN (09:04)
[2023-10-16] MEDS: LEVOTHYROXINE SODIUM 25 MCG TABLET PO SCH (09:04)
[2023-10-16] MEDS: INSULIN LISPRO 100 UNIT/1 ML 3ML VIAL SQ SCH (09:09)
[2023-10-16] MEDS: INSULIN GLARGINE 100 UNITS/ML VIAL SQ SCH (09:10)
[2023-10-17] VITALS: BP 108/58; PULSE 78; RESP 18; TEMP 97.9; O2SAT 98
[2023-10-17 04:00] VITALS: BP 134/69; PULSE 78; RESP 20; TEMP 97.9; O2SAT 95
[2023-10-17 08:10] VITALS: BP 134/64; PULSE 71; RESP 18; TEMP 97.6; O2SAT 100
[2023-10-17 08:34] VITALS: BP 134/64; PULSE 71; RESP 18; TEMP 97.6; O2SAT 100
[2023-10-17 10:02] LABS: BILIRUBIN,URINE NEGATIVE (NEGATIVE); CLARITY,URINE CLEAR (CLEAR); COLOR,URINE YELLOW (YELLOW); GLUCOSE, URINE 500 (NEGATIVE); KETONES,URINE NEGATIVE (NEGATIVE); LEUKOCYTE ESTERASE ,URINE NEGATIVE (NEGATIVE); NITRITE,URINE NEGATIVE (NEGATIVE); PH,URINE 6 (5 - 7); PROTEIN,URINE DIPSTICK NEGATIVE (NEGATIVE); URINE UROBILINOGEN 0.2 mg/dL (0.2 - 1)
[2023-10-17 10:09] LABS: BACTERIA,URINE FEW /HPF; EPITHELIAL CELLS,URINE MODERATE /LPF; RBC,URINE 0-5 /HPF (0-5); WBC,URINE (MAN) 0-5 /HPF (0-5); YEAST,URINE MANY
[2023-10-17] MEDS ORDERED: LEVEMIR100 UNIT/1 SQ (12:37)
[2023-10-17 12:42] VITALS: BP 132/70; PULSE 76; RESP 17; TEMP 97.8; O2SAT 99
== END 2023-10-17 15:03 | disposition home or self-care (01) ==
LOC: ER 13:24 → ERHOLD 15:37 → MED/SURG3 17:27
PROVIDERS: ADMIT Internal Medicine; ATTEND Internal Medicine
DX: E11.65 Type 2 diabetes mellitus with hyperglycemia (principal); E87.1 Hypo-osmolality and hyponatremia; E87.20 Acidosis, unspecified; E11.22 Type 2 diabetes mellitus with diabetic chronic kidney disease; I12.9 Hypertensive chronic kidney disease with stage 1 through stage 4 chronic kidney disease, or unspecified chronic kidney disease; N18.30 Chronic kidney disease, stage 3 unspecified; E11.40 Type 2 diabetes mellitus with diabetic neuropathy, unspecified; Z79.4 Long term (current) use of insulin; Z79.84 Long term (current) use of oral hypoglycemic drugs; E11.69 Type 2 diabetes mellitus with other specified complication; E78.5 Hyperlipidemia, unspecified; G89.4 Chronic pain syndrome; Z91.119 Patient's noncompliance with dietary regimen due to unspecified reason; E66.9 Obesity, unspecified; Z68.39 Body mass index [BMI] 39.0-39.9, adult; F41.8 Other specified anxiety disorders; G47.00 Insomnia, unspecified; K76.0 Fatty (change of) liver, not elsewhere classified; M19.91 Primary osteoarthritis, unspecified site; Z11.52 Encounter for screening for COVID-19; Z79.899 Other long term (current) drug therapy; Z79.01 Long term (current) use of anticoagulants
CPT/HCPCS: 36415 ×3; 80048; 80053; 81001; 82948 ×3; 85025 ×2; 94003; 94799; 99284; G0378 ×3; U0002